=== PATIENT | male | born 1955 | race Caucasian/White ===

== ENCOUNTER 2016-07-08 22:25 | Inpatient (IN) | payer BC ==
[~2016-07-08 22:25] MED LIST: SODIUM CHLORIDE 0.9% 500 ML IV ONE
[2016-07-08] MEDS ORDERED: NITROGLYCERIN SL TABS 0.4 MG TAB SUBLINGUAL PRN (22:29)
[2016-07-08] MEDS ORDERED: ASPIRIN 81 MG CHEW PO STA (22:29)
[2016-07-08] MEDS ORDERED: MORPHINE SULFATE 4 MG/ML SYRINGE IV PRN (22:29)
[2016-07-08] MEDS ORDERED: HEPARIN SODIUM,PORCINE 5,000 UNIT/ML 1 ML VIAL IV PRN (22:29)
[2016-07-08] MEDS ORDERED: HEPARIN SODIUM,PORCINE/D5W PMX 25,000 UNIT in DEXTROSE/WATER 1 500ML.BAG IV SCH (22:30)
--- NOTE | 2016-07-08 22:33 | ED ---
General Adult HPI - General Stated complaint: STEMI Time Seen by Provider: 07/08/16 22:28 Source: RN notes reviewed, old records reviewed - History of Present Illness Initial comments: This is a 61-year-old male the ER for reevaluation chest pain. Patient has history of high blood pressure cholesterol an ex-smoker coming in with severe chest pain. Patient presented to others addition aside from [place] chest pain earlier today was diagnosed and transferred to this hospital for cardiac intervention. Patient remains a chest pain at this time. Mild shortness of breath. At this time is not diaphoretic without cough or congestion and no travel history. Review of Systems ROS Statement: Those systems with pertinent positive or pertinent negative responses have been documented in the HPI. ROS Other: All systems not noted in ROS Statement are negative. General Exam General appearance: alert, in no apparent distress, anxious Head exam: Present: atraumatic, normocephalic, normal inspection Eye exam: Present: normal appearance, PERRL, EOMI. Absent: scleral icterus, conjunctival injection, periorbital swelling ENT exam: Present: normal exam, mucous membranes moist Neck exam: Present: normal inspection. Absent: tenderness, meningismus, lymphadenopathy Respiratory exam: Present: normal lung sounds bilaterally. Absent: respiratory distress, wheezes, rales, rhonchi, stridor Cardiovascular Exam: Present: regular rate, normal rhythm, normal heart sounds. Absent: systolic murmur, diastolic murmur, rubs, gallop, clicks GI/Abdominal exam: Present: soft, normal bowel sounds. Absent: distended, tenderness, guarding, rebound, rigid Extremities exam: Present: normal inspection, full ROM, normal capillary refill. Absent: tenderness, pedal edema, joint swelling, calf tenderness Back exam: Present: normal inspection Neurological exam: Present: alert, oriented X3, CN II-XII intact Psychiatric exam: Present: normal affect, normal mood Skin exam: Present: warm, dry, intact, normal color. Absent: rash Course - Reevaluation(s) Reevaluation #1: 07/08/16 22:31 Patient's at this time remains with mild chest pain. Spoke with patient regarding symptoms of diagnosis, patient is aware questions are answered Reevaluation #2: 07/08/16 22:31 Spoke with transferring physician from [facility] regarding EKG EKG Findings - EKG Comments: EKG Findings:: EKG shows normal sinus rhythm rate of 90, HI 186, QRS 96, QTC 462 , patient does have ST elevated MT Medical Decision Making - Medical Decision Making 6 will not ER as a transfer patient for positive is elevated MT, patient was given heparin and aspirin third on heparin drip, patient admitted to laborer/key man for cardiac intervention. - Radiology Data Radiology results: report reviewed (Chest x-ray portable is negative for acute disease), image reviewed Critical Care Time Critical Care Time: Yes Total Critical Care Time: 31 Disposition Clinical Impression: STEMI (ST elevation myocardial infarction) Disposition: ADMITTED IP TO THIS HOSP Condition: Serious Referrals: None,Stated [Primary Care Provider] - 1-2 days
[2016-07-08] MEDS: ATORVASTATIN 80 MG TAB PO SCH (22:34)
[2016-07-08] MEDS ORDERED: ATORVASTATIN 80 MG TAB PO STA (22:45)
[2016-07-08] MEDS ORDERED: MIDAZOLAM 2 MG/2 ML VIAL ONE (22:48)
[2016-07-08] MEDS ORDERED: fentaNYL (PF) 50 MCG/ML 2 ML AMP ONE (22:48)
[2016-07-08] MEDS ORDERED: MIDAZOLAM 2 MG/2 ML VIAL IVP ONE (22:50)
[2016-07-08] MEDS ORDERED: SODIUM CHLORIDE 0.9% 500 ML IV ONE (22:50)
[2016-07-08] MEDS ORDERED: fentaNYL (PF) 50 MCG/ML 2 ML AMP IV ONE (22:50)
[2016-07-08] MEDS ORDERED: LIDOCAINE 2% INJ 20 MG/ML SQ ONE (22:52)
--- NOTE | 2016-07-08 22:52 | XR ---
EXAMINATION TYPE: XR chest 1V portable DATE OF EXAM: 07/08/2016 10:37 PM COMPARISON: 02/19/2009 HISTORY: Chest pain TECHNIQUE: Single frontal view of the chest is obtained. FINDINGS: There is no heart failure nor confluent pneumonic infiltrate. There are no hilar masses. C ostophrenic angles are clear. There are chest leads. IMPRESSION: Normal chest. No change.
[2016-07-08] MEDS ORDERED: PRASUGREL 10 MG TAB ONE (22:54)
[2016-07-08] MEDS ORDERED: PRASUGREL 10 MG TAB PO ONE (22:55)
[2016-07-08] MEDS ORDERED: NITROGLYCERIN SL TABS 0.4 MG TAB SUBLINGUAL ONE (22:55)
[2016-07-08] MEDS ORDERED: BIVALIRUDIN BOLUS 250 MG/50 ML IV ONE (23:00)
[2016-07-08] MEDS ORDERED: BIVALIRUDIN 250 MG in SODIUM CHLORIDE 0.9% 50 ML IV ONE ×2 (23:00→23:43)
[2016-07-08] MEDS ORDERED: POTASSIUM CHLORIDE 20 MEQ, LIDOCAINE 2% INJ 20 MG in SODIUM CHLORIDE 0.9% 100 ML IVPB ONE (23:18)
[2016-07-08] MEDS: NITROGLYCERIN 1000MCG/10ML SYRINGE INTRACORON ONE ×2 (23:35→23:45)
[2016-07-08] MEDS ORDERED: IODIXANOL 320 MG/ML 100 ML INTRAARTER ONE (23:59)
[2016-07-09] MEDS ORDERED: ZOLPIDEM 5 MG TAB PO PRN (00:08)
[2016-07-09] MEDS ORDERED: ATROPINE SULFATE 0.1 MG/ML 10ML SYRINGE IV PRN (00:08)
[2016-07-09] MEDS ORDERED: RX INFO: IV CONTRAST WAS GIVEN 1 EACH MISC MISCELLANE PRN (00:08)
[2016-07-09] MEDS ORDERED: MAG HYDROX/AL HYDROX/SIMETH 30 ML CUP PO PRN (00:08)
[2016-07-09] MEDS ORDERED: NITROGLYCERIN SL TABS 0.4 MG TAB SUBLINGUAL PRN (00:08)
[2016-07-09 00:25] LABS: Glucose,Whole Blood 152 mg/dL (75-99)
[2016-07-09] MEDS: SODIUM CHLORIDE 0.9% 1,000 ML IV SCH ×3 (00:30→21:42)
[2016-07-09 00:42] VITALS: BMI 34.4
[2016-07-09 01:57] LABS: Creatine Kinase MB 56.6 ng/mL (0.0-2.4)
[2016-07-09 01:58] LABS: Troponin I 15.8 ng/mL (0.000-0.034)
[2016-07-09 06:55] LABS: Basophils % (A) 0 %; CH 29.9; CHCM 33.3; Eosinophils # (A) 0.3 k/uL (0-0.7); Eosinophils % (A) 4 %; HCT 39.5 % (39.0-53.0); HGB 13.2 gm/dL (13.0-17.5); Luc # (Auto) 0.19; Luc % (Auto) 2; Lymphocytes # (A) 1.4 k/uL (1.0-4.8); Lymphocytes % (A) 16 %; MCH 30.2 pg (25.0-35.0); MCHC 33.5 g/dL (31.0-37.0); Mean Platelet Volume 6.6; Monocytes # (A) 0.5 k/uL (0-1.0); Monocytes % (A) 6 %; Neutrophils # (A) 6.6 k/uL (1.3-7.7); Neutrophils % (A) 73 %; RBC 4.39 m/uL (4.30-5.90); RDW 13.8 % (11.5-15.5); WBC (Perox) 8.85
[2016-07-09 07:22] LABS: ALT 57 U/L (21-72); AST 265 U/L (17-59); Alkaline Phosphatase 64 U/L (38-126); Anion Gap 7 mmol/L; Blood Urea Nitrogen 20 mg/dL (9-20); Calcium 8.4 mg/dL (8.4-10.2); Carbon Dioxide 23 mmol/L (22-30); Chloride 110 mmol/L (98-107); Cholesterol 218 mg/dL (<200); Glucose 106 mg/dL (74-99); HDL Cholesterol 36 mg/dL (40-60); Non-African American GFR(MDRD) >60 (>60 ml/min/1.73 sqM); Potassium 4.3 mmol/L (3.5-5.1); Sodium 140 mmol/L (137-145); Total Bilirubin 0.8 mg/dL (0.2-1.3); Total Protein 6.7 g/dL (6.3-8.2); Triglycerides 150 mg/dL (<150)
[2016-07-09 08:14] LABS: Troponin I 59.7 ng/mL (0.000-0.034)
--- NOTE | 2016-07-09 08:28 | CONS ---
DATE OF CONSULTATION: Mr. Esteves is a 61-year-old gentleman who was transferred from [facility] because of the acute myocardial infarction. Patient presented to the [facility] Emergency Room with the complaint of chest pain. The pain started about 3 hours prior to coming into the emergency room. It was a heavy discomfort radiating to the neck and shortness of breath. Patient was diaphoretic. EKG was suggestive of acute inferior wall myocardial infarction. This patient has a known history of peripheral vascular disease and had some surgery in the right leg. Patient is a former smoker and has a history of hypertension. The patient does not take any medications. According to him, he has been having intermittent chest pains on and off for many years. There is no definite previous history of myocardial infarction. Past medical history includes the history of cholecystectomy and a history of surgery for peripheral vascular disease in the right arm. SOCIAL HISTORY: Patient is a former smoker. MEDICATIONS: None. Physical examination in [facility] Emergency Room revealed the patient's blood pressure was 180/90 mmHg. HEAD/ENT examination is negative. Neck was supple. There was no increase in jugular venous pressure. Both the carotid pulses were felt. There was no bruit. Chest is symmetrical. HEART: The PMI is not felt. First and second heart sounds are normal. No significant murmurs were noted. Lungs are clinically clear to auscultation and percussion. Abdomen was negative. EXTREMITIES: Both femoral pulses were 2+. There is a scar present in the mid thigh. Distal pulses were 1+. EKG was suggestive of acute inferior wall myocardial infarction. FINAL IMPRESSION: 1. This patient has presented with acute inferior wall myocardial infarction. 2. Patient has a known history of peripheral vascular disease and mild coronary artery disease in the past. RECOMMENDATIONS: We will proceed with a cardiac catheterization for definite diagnosis and primary angioplasty.
--- NOTE | 2016-07-09 08:32 | CC ---
DATE OF SERVICE: PROCEDURE: The right groin was prepped and draped in the usual manner and the skin was infiltrated with 2% Xylocaine. The right femoral artery was entered using Seldinger technique. A #6 Bel[place]an sheath was placed in. Selective coronary angiography was then performed in multiple projections. Patient tolerated the procedure well. SELECTIVE CORONARY ANGIOGRAPHY: Left main coronary artery is normal and patent. LAD is a good caliber blood vessel. There is a mild irregularity noted in the mid LAD. Circumflex coronary artery is a good caliber blood vessel and the first obtuse marginal branch is subtotally occluded with POONAM 2 flow noted in the obtuse marginal branch and the PLV branch. Right coronary artery is totally occluded. There is some filling of distal right coronary artery from left coronary system. FINAL IMPRESSION: 1. There is subtotal occlusion of the circumflex coronary artery which appears to be culprit vessel. 2. Left anterior descending has mild disease. 3. Right coronary artery is chronically totally occluded. RECOMMENDATIONS: Will review the films with Dr. Perry Mancia and we will proceed with stent to the obtuse marginal branch.
--- NOTE | 2016-07-09 08:45 | PTCA ---
DATE OF SERVICE: 07/08/2016 PROCEDURE: PTCA and stenting of totally occluded circumflex coronary artery performed in the setting of an acute ST elevation myocardial infarction. PERFORMED BY: Dr. Perry Mancia. CLINICAL INFORMATION: Mr. 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 He is known to have peripheral arterial disease. In 2008, he had a bypass surgery, involving the right lower extremity. The details of which are not available. Coronary angiography at that time revealed that he had a right dominant system and had minor irregularities. No significant obstructive CAD. He presented with chest pain and inferior ST elevation. He was evaluated by Dr. Benton Cuellar who performed coronary angiography that revealed that the right coronary artery was totally occluded and probably chronically occluded. LAD had a moderate 40 to 45% mid lesion. Circumflex was totally occluded in the proximal portion with some staining suggestive of a total occlusion, which was an acute occlusion. He was advised intervention that was performed expeditiously. PROCEDURE NOTE: The existing 6 Chinese introducer in the right femoral artery was used to perform the procedure. I used an XB 3.5 curved catheter to cannulate the left coronary artery. I used a BMW wire to cross the lesion, wire was kept in the first obtuse marginal branch, which was located just beyond the total occlusion. I advanced another wire, which was also a BMW wire into the main circumflex all the way distally into the branches. There was a larger second obtuse marginal that was patent with good flow. Once I advanced the wire, the vessel opened up. There was relief of chest pain. I predilated the site of total occlusion with a 3.0 caliber, 12 mm long NC Euphora balloon. I then used a 2.5 caliber, 12 mm balloon to dilate the first obtuse marginal which had a lot of thrombus in it. This balloon was advanced in a deflated condition all the way down. Subsequently patient had chest pain and inferior ST elevation with these inflations. I left both wires in place and after some deliberation, I advanced a 2.25 caliber, 12 mm long Xience stent into the first obtuse marginal. The proximal end was right at the ostium. A decent angiographic result was achieved. I then deployed a 3.25 caliber, 12 mm long Xience stent in the proximal circumflex and the distal aspect of the stent was just above the first obtuse marginal branch. Excellent angiographic result was achieved, but I noted that just before the larger second obtuse marginal and there was an eccentric 80% lesion. This was addressed with a 2.5 caliber, 8 mm long Xience stent that was deployed at 13 atmospheres. Patient had chest pain and inferior ST elevation with inflations. After deploying three stents, he had an excellent angiographic result. He had total relief of chest pain. There was improvement in ST segment elevation, but not normalization. He remained hemodynamically stable. The sheath was sutured and he was sent to the room in stable condition. He received Angiomax bolus and infusion. He also received 60 mg of Effient. The results and angiograms were reviewed with the patient and his . Excellent angiographic result without complication was noted. His right coronary artery seemed to fill from collaterals coming from the left system. Conscious sedation was provided for 50 minutes and patient was monitored closely. ASSESSMENT: From a pre- PTCA stenosis of about 100% with sluggish flow in the circumflex, after stenting the residual stenosis was 0%, with remarkably good angiographic appearance and flow without evident complication. I am advising a pulmonary evaluation for this patient in view of his past history of smoking and some wheezing. He has quit smoking in 2009 or so. He will also have an echocardiogram in the morning. SANDRA
[2016-07-09] MEDS: ASPIRIN 81 MG CHEW PO SCH (08:49)
[2016-07-09] MEDS ORDERED: LISINOPRIL 10 MG TAB PO SCH ×2 (09:00→21:00)
[2016-07-09] MEDS ORDERED: METOPROLOL TARTRATE 12.5 MG TAB PO SCH (09:00)
[2016-07-09] MEDS ORDERED: ASPIRIN 325 MG TAB PO SCH (09:00)
[2016-07-09] MEDS: ATROPINE SULFATE 0.1 MG/ML 10ML SYRINGE ONE ×2 (12:33→12:35)
[2016-07-09] MEDS ORDERED: SODIUM CHLORIDE 0.9% 1,000 ML IV ONE (12:34)
--- NOTE | 2016-07-09 14:47 | ECHOF ---
Referral Reason:Inf [place] S/P PCI MEASUREMENTS -------- HEIGHT: 180.3 cm WEIGHT: 113.4 kg BP: 167/87 IVSd: 1.5 cm (0.6 - 1.1) LVIDd: 4.6 cm (3.9 - 5.3) LVPWd: 1.4 cm (0.6 - 1.1) IVSs: 2.1 cm LVIDs: 2.7 cm LVPWs: 1.9 cm Ao Diam: 3.1 cm (2.0 - 3.7) AV Cusp: 2.0 cm (1.5 - 2.6) LA Diam: 3.0 cm (2.7 - 3.8) MV EXCURSION: 9.718 mm (> 18.000) MV EF SLOPE: 53 mm/s (70 - 150) EPSS: 1.2 cm MV E Eyad: 0.87 m/s MV DecT: 288 ms MV A Eyad: 1.03 m/s MV E/A Ratio: 0.85 RAP: 5.00 mmHg RVSP: 8.86 mmHg FINDINGS -------- Sinus rhythm. This was a technically good study. There is moderate concentric left ventricular hypertrophy. Overall left ventricular systolic function is mild-moderately impaired with, an EF between 40 - 45 %. Basal inferior LV wall motion is akinetic. Mid inferior LV wall motion is akinetic. Inferiorlateral Hypokinesis The right ventricle is normal in size and function. The left atrium is normal in size. The right atrium is normal in size. The aortic valve is trileaflet, and appears structurally normal. No aortic stenosis or regurgitation. The mitral valve leaflets are mildly thickened. Mild mitral regurgitation is present. Mild tricuspid regurgitation present. The right ventricular systolic pressure, as measured by Doppler, is 8.86mmHg. Pulmonic valve appears structurally normal. The aortic root size is normal. The pericardium is normal. CONCLUSIONS -------- 1. Sinus rhythm. 2. The mitral valve leaflets are mildly thickened. 3. Mild mitral regurgitation is present. 4. Mild tricuspid regurgitation present. 5. The right ventricular systolic pressure, as measured by Doppler, is 8.86mmHg. 6. Pulmonic valve appears structurally normal. 7. The aortic root size is normal. 8. The pericardium is normal. 9. This was a technically good study. 10. There is moderate concentric left ventricular hypertrophy. 11. Overall left ventricular systolic function is mild-moderately impaired with, an EF between 40 - 45 %. 12. Inferiorlateral Hypokinesis 13. The right ventricle is normal in size and function. 14. The left atrium is normal in size. 15. The right atrium is normal in size. 16. The aortic valve is trileaflet, and appears structurally normal. No aortic stenosis or regurgitation. BUS REPAIR SUPERVISOR: Marizol Reyes RDCS
--- NOTE | 2016-07-09 15:05 | PN ---
Mr. Esteves was seen by me last night when he presented with acute inferior HI. I performed stenting of a very complex circumflex lesion. He had an excellent angiographic result. He is doing well this morning. Right groin is clean and dry. Blood pressure is slightly elevated, otherwise, he is feeling better. He still has some rales and some rhonchi. He does have past history of smoking. Blood pressure 160/70, pulse rate is 60 per minute. JVD is not evident. S1, S2 heard normally. Lungs reveal scattered rhonchi. Abdomen and lower extremity exam unchanged. Right groin is clean and dry. Plan is to increase lisinopril. Continue all his medications. Increase activity. Move him to telemetry today.
--- NOTE | 2016-07-09 18:12 | CONS ---
DATE OF CONSULTATION: Zachary Esteves is a 61-year-old male who presented to the ED at [facility] with chest pain. It lasted for a few hours and has been associated with shortness of breath. He did have shortness of breath for the past few months as well on exertion. No clear wheezing. He has an occasional cough. He was found to have an acute myocardial infarction and underwent primary coronary angioplasty with good result. He has a known history of smoking and quit smoking in 2009. Patient is sitting in a chair and is comfortable at this time. He complains of shortness of breath on exertion, but does not seem to be in any respiratory distress. His past medical history is negative for coronary artery disease. He may have had inhaler in the past, but it is not clear whether this is due to chronic obstructive pulmonary disease or something acute at this time. Past medical history is positive for peripheral vascular surgery in his right arm as well as a cholecystectomy. FAMILY HISTORY: Positive for rheumatoid arthritis in his brother and cancer runs in the family. SOCIAL HISTORY: The patient used to smoke a pack of cigarettes per day. He quit smoking in 2009. 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 Medications prior to admission were ibuprofen and aspirin. REVIEW OF SYSTEMS: Positive for obesity. On physical examination, respiratory rate is 14, pulse rate of 60, temperature 98.1, blood pressure 101/66, O2 sat on room air is 96%. HEENT reveals pupils are equal. Chest reveals decreased breath sounds. No wheeze or crackles. Cardiovascular system reveals an S1 and S2. ABDOMEN: Soft. There is no pedal edema. Labs reveal a white count of 9, hemoglobin 13.2. Sodium 140, potassium 4.3, chloride 110, bicarb 23, BUN 20, creatinine of 1.02, CPK is 2174 with an MB of 122. Troponin is 59.7, triglycerides 150, cholesterol 218. Chest x-ray is normal. EKG shows ST depression in one with ST elevation in 2, 3 and aVF consistent with an acute inferolateral myocardial infarction. Cardiac catheterization showed subtotal occlusion of the circumflex with right coronary artery totally occluded. PTCA was done of the circumflex with a residual stenosis of 0%. At this point in time, from a pulmonary standpoint, would recommend an outpatient work-up for possible chronic obstructive pulmonary disease, may benefit from a sleep study for obstructive sleep apnea. As well as this may be contributing to his history of coronary artery disease. He was counseled regarding his condition and this approach. We will follow him closely. From a respiratory standpoint, at this time, he seems fairly stable.
[2016-07-09] MEDS: PRASUGREL 10 MG TAB PO SCH (21:42)
[2016-07-10 04:57] LABS: Basophils % (A) 0 %; CH 29.9; CHCM 32.2; Eosinophils # (A) 0.4 k/uL (0-0.7); Eosinophils % (A) 4 %; HCT 41.4 % (39.0-53.0); HDW 2.55; Luc % (Auto) 2; Lymphocytes # (A) 1.8 k/uL (1.0-4.8); Lymphocytes % (A) 18 %; MCH 29.3 pg (25.0-35.0); MCHC 31.5 g/dL (31.0-37.0); MCV 93.2 fL (80.0-100.0); Mean Platelet Volume 6.7; Monocytes # (A) 0.5 k/uL (0-1.0); Monocytes % (A) 5 %; Neutrophils # (A) 6.9 k/uL (1.3-7.7); Neutrophils % (A) 71 %; RBC 4.45 m/uL (4.30-5.90); RDW 13.9 % (11.5-15.5); WBC 9.8 k/uL (3.8-10.6); WBC (Perox) 10.47
[2016-07-10 05:03] LABS: Anion Gap 6 mmol/L; Blood Urea Nitrogen 16 mg/dL (9-20); Calcium 8.7 mg/dL (8.4-10.2); Carbon Dioxide 24 mmol/L (22-30); Chloride 109 mmol/L (98-107); Glucose 107 mg/dL (74-99); Non-African American GFR(MDRD) >60 (>60 ml/min/1.73 sqM); Potassium 4.6 mmol/L (3.5-5.1); Sodium 139 mmol/L (137-145)
[2016-07-10] MEDS: SODIUM CHLORIDE 0.9% 1,000 ML IV SCH ×3 (06:18→15:58)
--- NOTE | 2016-07-10 07:13 | HP ---
DATE OF ADMISSION: 07/08/2016 DATE OF SERVICE: 07/09/2016 CHIEF COMPLAINT: Chest pain. HISTORY OF PRESENT ILLNESS: Mr. Esteves is a 61-year-old male with past medical history of hyperlipidemia and hypertension coming into the hospital with a chief complaint of chest pain. The patient has long-standing history of hypertension and hyperlipidemia and he is an ex-smoker who is noncompliant with his medications, who came in with a chief complaint of chest pain. The patient had the chest pain for almost 3 hours before coming into the ER. It was substernal in nature, radiating to the neck and he was slightly short of breath, but there was no loss of consciousness, no diaphoresis. Patient has long-standing hypertension and hyperlipidemia, but does not take any home medication. Patient had an EKG done in the ER suggestive of acute inferior wall myocardial infarction. So he was taken to cardiac cath and had 3 stents placed. Currently, the patient is in the ICU, status post procedure and he denies having any complaints of chest pain or difficulty in breathing. REVIEW OF SYSTEMS: All 13 review of systems are done and negative except as mentioned above. PAST MEDICAL HISTORY: Hypertension, hyperlipidemia, noncompliance with medications. ALLERGIES: No known drug allergies. HOME MEDICATIONS: None. FAMILY: Positive for hypertension. SOCIAL HISTORY: The patient is an ex-smoker, occasional alcohol. No history of drug abuse. Patient's vitals: Currently, blood pressure 130/52, heart rate of 62, respiratory rate 12, saturating at 99% on room air. Temperature is 98. On examination, the patient appears to be in no acute distress. HEAD: Atraumatic, nontraumatic. Pupils round, and reactive to light. NECK: No JVD, thyromegaly LUNGS: Clear to auscultation ABDOMEN: Soft, nontender. No organomegaly. Bowel sounds are positive. EXTREMITIES: No edema, no cyanosis, no clubbing. Positive pulses. SENIOR ORACLE DBA: Alert and oriented x3. No focal neurological deficits. SKIN: No rash. MUSCULOSKELETAL: No joint swelling or deformity. PSYCHIATRIC: Appropriate mood and affect. Patient's labs: White count of 9, hemoglobin 13.2, platelets 267. Sodium 145, potassium 4.2, chloride 110. Bicarb 23, BUN 23, creatinine 1.02. LDL 152. Troponin 15.8. ASSESSMENT AND PLAN: 1. ST elevation myocardial infarction. 2. Hypertension. 3. Hyperlipidemia. 4. Symptomatic Bradycardia 5. Obesity with body mass index of 33.9. PLAN: The patient had stenting of 3 vessels done. Patient has been started on aspirin, statin, RODNEY inhibitors and beta blockers. Earlier this morning, patient had an episode of bradycardia and hypotension and he required a dose of atropine and 2 liters of IV fluids to get his blood pressure and heart rate up. So eventually his beta blockers and RODNEY inhibitors have been discontinued due to this acute episode. He is currently being monitored in the ICU setting. To continue with the current medication regimen and further recommendations to follow depending on the progress of the patient. MTDD
[2016-07-10] MEDS: ASPIRIN 81 MG CHEW PO SCH (09:20)
[2016-07-10] MEDS: CARVEDILOL 3.125 MG TAB PO SCH ×2 (09:20→17:01)
[2016-07-10 14:21] LABS: Hemoglobin A1C 5.8 % (4.2-6.1)
--- NOTE | 2016-07-10 14:32 | PN ---
Mr. Esteves presented with an acute inferior NJ, underwent stenting of complex circumflex vessel. Yesterday he had an episode of vasovagal phenomenon after I saw him in the morning and this occurred after he received 20 mg of Lisinopril and another 12.5 of Lopressor. He was also somewhat volume depleted, became vasovagal, requiring IV fluids and 1.5 mg of atropine. However, this morning he is asymptomatic. His troponin profile suggests a downward trend. He is comfortable, resting. EKG shows no acute changes. There is evidence of old NJ. Blood pressure 170/60, pulse rate is 64 per minute. No JVD. S1, S2 heard normally. Lungs are clear. Abdomen and lower extremities unremarkable. We will continue the hydration, increase activity. Start him on a small dose of Coreg and also a small dose of losartan and move him out of telemetry this afternoon. We will cut the fluids down to 75 mL this afternoon. I discussed my thoughts in detail with the patient. Thank you very much for the consult.
[2016-07-10] MEDS: PRASUGREL 10 MG TAB PO SCH (20:43)
[2016-07-10] MEDS ORDERED: LOSARTAN 25 MG TAB PO SCH (21:00)
[2016-07-11 06:23] LABS: Mean Platelet Volume 6.7
[2016-07-11] MEDS: SODIUM CHLORIDE 0.9% 1,000 ML IV SCH ×2 (06:48→07:24)
[2016-07-11] MEDS: CARVEDILOL 3.125 MG TAB PO SCH (06:57)
[2016-07-11] MEDS: ASPIRIN 81 MG CHEW PO SCH (07:30)
[2016-07-11] MEDS: ATORVASTATIN 80 MG TAB PO SCH (07:30)
[2016-07-11 07:50] VITALS: TEMP 97.2
--- NOTE | 2016-07-11 10:59 | PN ---
He does not complain of any chest pain or shortness of breath. On physical examination, his blood pressure is 140/74, respiratory rate of 18, pulse rate of 68, temperature 98.1, O2 sat on room air is 97%. HEENT reveals pupils that are equal. Chest is clear. Cardiovascular system reveals an S1 and S2. Abdomen is soft. There is no edema. Labs are reviewed. White count is 9.8, hemoglobin of 13. Sodium 139, potassium 4.6, chloride 106, bicarb 24, troponin yesterday afternoon had been 37.2. IMPRESSION: 1. Acute myocardial infarction, status post angioplasty. 2. Possible chronic obstructive pulmonary disease with previous nicotine dependence. 3. Obstructive sleep apnea is likely as the patient does have risk factors and has been noted to snore per his . At this point in time, from a pulmonary standpoint, would recommend an outpatient followup and work-up with PFT and possible sleep study, hold off on any bronchodilators at this time because of the possibly of cardiac side effects. Depending on how he does, we shall make further changes to his care. He was counseled regarding his condition.
--- NOTE | 2016-07-11 11:13 | P.PN ---
Subjective Principal diagnosis: STEMI Patient seen and examined. Patient states he is feeling really good and is hoping to go home today. He denies SOB, CP, cough, fever, chills. He states he has been up walking the halls today without difficulty. He quit smoking 10 years ago. Objective - Vital Signs Vital signs: Vital Signs Temp 97.2 F L 07/11/16 07:49 Pulse 60 07/11/16 07:49 Resp 16 07/11/16 07:49 BP 143/76 07/11/16 07:49 Pulse Ox 98 07/11/16 07:49 Intake & Output 07/10/16 07/11/16 07/11/16 18:59 06:59 18:59 Intake Total 490 800 240 Output Total 950 300 Balance -460 500 240 Weight 111.4 kg Intake: IV 250 Sodium Chloride 0.9% 1, 250 000 ml @ 75 mls/hr IV . [id number] FABIO Rx#:[id number] Intake, IV Titration 0 Amount Sodium Chloride 0.9% 1, 0 000 ml @ 125 mls/hr IV . Q8H FABIO Rx#:[id number] Oral 240 800 240 Output: Urine 950 300 Other: # Voids 1 # Bowel Movements 0 - Exam Gen: A+OX3, NAD CV: RRR, s1/s2 Lungs: Diminished otherwise clear Abd: soft, NT/NT, +BS Ext: no edema - Labs CBC & Chem 7: 07/11/16 05:43 07/10/16 04:28 Assessment and Plan Plan: STEMI, s/p PCI Possible underlying COPD Hx tobacco abuse Obesity, question GINNY Vasovagal syncope Hypertension Dyslipidemia Systolic CHF, EF 40-45%, not acutely exacerbated Maintain sat > or = to 88% Cardiology recommendations Continue smoking cessation is highly recommended Outpatient pulmonary follow-up for PFT and PSG No need for bronchodilators at this time Incentive spirometry and pulmonary hygiene GI and DVT prophylaxis Respiratory status is stable
[2016-07-11 12:23] VITALS: RESP 18
[2016-07-11 13:02] VITALS: BP 147/93; PULSE 67
--- NOTE | 2016-07-11 14:42 | P.PN ---
Subjective Principal diagnosis: Acute Inferior Wall Mi This is a 61-year-old gentleman who presented to the hospital with an acute inferior wall NJ. He underwent angioplasty and stenting of the circumflex. Following that patient had an episode of vasovagal requiring atropine and IV fluids. He was seen and examined this morning, denies any chest pain or difficulty in breathing. He has been up ambulating in his room but not much in the hallway at this morning. Blood pressure 166/80 heart rate in the 60s. Echocardiogram with Doppler study was performed an ejection fraction of 40-45%. CBC normal. Potassium 4.6, BUN 16, creatinine 1.1. Objective - Vital Signs Vital signs: Vital Signs Temp 97.2 F L 07/11/16 12:00 Pulse 67 07/11/16 13:00 Resp 18 07/11/16 12:00 BP 147/93 07/11/16 13:00 Pulse Ox 96 07/11/16 13:00 Intake & Output 07/10/16 07/11/16 07/11/16 18:59 06:59 18:59 Intake Total 490 800 240 Output Total 950 300 Balance -460 500 240 Weight 111.4 kg Intake: IV 250 Sodium Chloride 0.9% 1, 250 000 ml @ 75 mls/hr IV . [id number] FABIO Rx#:[id number] Intake, IV Titration 0 Amount Sodium Chloride 0.9% 1, 0 000 ml @ 125 mls/hr IV . Q8H FABIO Rx#:[id number] Oral 240 800 240 Output: Urine 950 300 Other: # Voids 1 # Bowel Movements 0 - Exam PHYSICAL EXAMINATION: HEENT: Head is atraumatic, normocephalic. Pupils equal, round. Neck is supple. There is no elevated jugular venous pressure. HEART EXAMINATION: Heart S1, S2 normal. No murmur or gallop heard. CHEST EXAMINATION: Lungs are clear to auscultation and precussion. No chest wall tenderness is noted on palpation or with deep breathing. ABDOMEN: Soft, nontender. Bowel sounds are heard. No organomegaly noted. EXTREMITIES: 2+ peripheral pulses with no evidence of peripheral edema and no calf tenderness noted. NEUROLOGIC patient is awake, alert and oriented -3. . - Labs CBC & Chem 7: 07/11/16 05:43 07/10/16 04:28 Assessment and Plan (1) Presence of stent in left circumflex coronary artery Status: Acute (2) HTN (hypertension) Status: Acute (3) Hyperlipemia Status: Acute (4) PVD (peripheral vascular disease) Status: Acute (5) STEMI (ST elevation myocardial infarction) Status: Acute Plan: From cardiology's perspective, patient may be able to be discharged home today. He will be discharged home on aspirin 81 mg daily, Lipitor 80 mg daily, Coreg 3.125 mg by mouth twice a day, losartan 50 mg daily, Effient 10 mg daily, and sublingual nitroglycerin as needed for chest pain. Patient has been educated regarding his medication, advised regarding his follow-up appointment and limitation of work. Prescriptions have been provided for his medications. DNP note has been reviewed, I agree with a documented findings and plan of care. Patient was seen and examined.
--- NOTE | 2016-07-11 15:23 | PN ---
DATE OF SERVICE: 07/10/2016 INTERVAL HISTORY: Mr. Esteves is a 61-year-old male with a past medical history of hypertension, hyperlipidemia who has been noncompliant with his medication, admitted to the hospital with a chief complaint of chest pain. The patient had ST-elevation [place] and was taken to the Process Engineering Intern and had 3 stents placed. Patient has been sent from the ICU to the floor this afternoon. Patient is resting comfortably in the bed, states that he took a walk in the hallways and has no complaints. REVIEW OF SYSTEMS: CONSTITUTIONAL: Denies having any fevers, chills or rigors. RESPIRATORY: No cough. No difficulty in breathing. CARDIAC: No chest pain, no palpitations. GI: No abdominal pain, nausea, vomiting or diarrhea. : No dysuria or hematuria. The patient medications have been reviewed. On examination, patient's vital signs, temperature 98.1, heart rate 66, respiratory rate 18, blood pressure 153/87, saturating at 99% on room air. GENERAL EXAMINATION: Patient appears to be in no acute distress. HEAD: Atraumatic, normocephalic. EYES: Pupils round and reactive to light. NECK: No JVD. No thyromegaly. CARDIOVASCULAR: S1, S2 heard. RESPIRATORY: Bilateral breath sounds are positive. No wheeze or crackles. ABDOMEN: Soft, nontender, no organomegaly. Bowel sounds positive. EXTREMITIES: No edema. No cyanosis, no clubbing. Positive for bilateral pulses. EMBROIDERY FINISHER: Alert, awake, oriented x3. No focal neurological deficits. MUSCULOSKELETAL: No joint swelling or deformity. PSYCHIATRIC: Appropriate mood and affect. SKIN: No rash. Patient's labs: White count of 9.8, hemoglobin 13, platelets 226, sodium 139, potassium 4.6, chloride 109, bicarb 24, BUN 16, creatinine 1.10. ASSESSMENT AND PLAN: 1. Acute myocardial infarction [id number] myocardial infarction. 2. Hypertension. 3. Hyperlipidemia. 4. Former smoker. 5. Obesity with body mass index of 33.9. 6. Hypotension and bradycardia after initiation of beta blockers. PLAN: The plan is to continue the patient on the current medication regimen. He was started on a tiny dose of Coreg and 25 mg of losartan today. Will follow the patient's vitals closely. Further recommendations to follow depending on the progress of the patient.
[2016-07-12] MEDS ORDERED: PANTOPRAZOLE 40 MG TABLET PO SCH (07:30)
[2016-07-12] MEDS ORDERED: LOSARTAN 50 MG TAB PO SCH (09:00)
--- NOTE | 2016-07-12 13:23 | DS ---
DATE OF ADMISSION: 07/08/2016 DATE OF DISCHARGE: 07/11/2016 DATE OF SERVICE: 07/11/2016 HOSPITAL COURSE: Mr. Esteves is a 61-year-old male with a past medical history of hypertension, hyperlipidemia, noncompliant with his medications, admitted to the hospital with a chief complaint of chest pain. The patient had ST elevation [place] was taken to the collaborating supervising physician and had 3 stents placed. Eventually the patient was in the ICU for 24 hours and later on transferred to the general medical floor. The patient also has chronic history of smoking. He has been diagnosed with hypertension and hyperlipidemia in the past but quit taking medications as he thinks he cannot remember taking his medications every day. Postop, the patient was doing okay, did not have any difficulty in breathing. No chest pain. His labs have been within normal limits. He has been cleared by cardiology to be discharged home today. Procedures done during the hospital visit: Echocardiogram showing an ejection fraction of 40% to 45% with inferolateral wall hypokinesis and cardiac cath with stenting of the left circumflex coronary artery. CONSULT OBTAINED: Cardiology and pulmonary consults. PATIENT'S DISCHARGE DIAGNOSES: 1. Acute myocardial infarction, ST elevation myocardial infarction. 2. Hypertension. 3. Hyperlipidemia. 4. Former smoker. 5. Obesity with BMI of 33.9. 6. Hypotension and bradycardia, that is resolved with the initiation of beta blockers. The patient's discharge medications: 1. Aspirin 81 mg p.o. daily. 2. Motrin 200 to 400 mg p.o. q.6 hours p.r.n. for pain. 3. Lipitor 80 mg p.o. daily. 4. Coreg 3.125 mg p.o. b.i.d. 5. Losartan 50 mg p.o. daily. 6. Nitroglycerin 0.4 mg sublingual q.5 minutes p.r.n. for chest pain. 7. Prasugrel 10 mg p.o. q.h.s. FOLLOWUP: The patient is given a follow-up appointment with Cardiology, Dr. Benton Cuellar on 07/19/2016 at 3:15 and he is being discharged home in stable condition. The patient was explained that he has to be compliant with his medications. He states he understands that. DIET: Cardiac diet. Activity as tolerated. It was discussed in detail if the patient has recurrence of chest pain that he has to seek medical attention. More than 35 minutes spent towards the discharge of the patient.
== END 2016-07-11 16:42 | disposition home or self-care (01) | DRG 247 ==
LOC: EC 22:25 → 6ICU 22:30 → 6SEL 07-10 13:06
PROVIDERS: ADMIT Internal Medicine; ATTEND Internal Medicine
PROC: 027036Z Dilation of Coronary Artery, One Artery with Three Drug-eluting Intraluminal Devices, Percutaneous Approach (ICD-10-PCS; principal; 2016-07-08 22:32)
PROC: B211YZZ Fluoroscopy of Multiple Coronary Arteries using Other Contrast (ICD-10-PCS; 2016-07-08 22:32)
DX: I21.19 ST elevation (STEMI) myocardial infarction involving other coronary artery of inferior wall (principal); I50.22 Chronic systolic (congestive) heart failure; I11.0 Hypertensive heart disease with heart failure; I95.9 Hypotension, unspecified; I25.82 Chronic total occlusion of coronary artery; R00.1 Bradycardia, unspecified; E78.5 Hyperlipidemia, unspecified; E66.9 Obesity, unspecified; Z68.33 Body mass index [BMI] 33.0-33.9, adult; I73.9 Peripheral vascular disease, unspecified; G47.33 Obstructive sleep apnea (adult) (pediatric); E86.9 Volume depletion, unspecified; I25.10 Atherosclerotic heart disease of native coronary artery without angina pectoris; Z87.891 Personal history of nicotine dependence; Z91.14 Patient's other noncompliance with medication regimen; Z90.49 Acquired absence of other specified parts of digestive tract; Z79.82 Long term (current) use of aspirin
CPT/HCPCS: 71010; 80048; 80053; 80061; 82550; 82553; 83036; 84484; 85025; 85049; 85730; 93005; 93306; 93454; 99291

== ENCOUNTER 2016-07-11 23:24 | Emergency (ER) | payer BC ==
[2016-07-11] MEDS ORDERED: RX INFO: IV CONTRAST WAS GIVEN 1 EACH MISC MISCELLANE PRN (23:32)
[2016-07-11] MEDS ORDERED: SODIUM CHLORIDE 0.9% 1,000 ML IV STA (23:32)
--- NOTE | 2016-07-11 23:46 | ED ---
Weakness HPI - General Chief complaint: Weakness Stated complaint: Poss Stroke Time Seen by Provider: 07/11/16 23:30 Source: patient, family, EMS Mode of arrival: EMS Limitations: physical limitation - History of Present Illness Initial comments: This patient is a 61-year-old man brought in by EMS to be evaluated for suspected stroke. The patient had gone to bed tonight around 7 PM, and then his states that she noticed she was coughing and she went to see him and noted that his left face was not looking right and that he was not moving his left side. She phoned EMS and they brought him here to be evaluated. The patient is denying headache or chest pain. He did recently have an acute NC and was taken to the Forestry Supervisor and had a stent placed on July 08. He is currently taking Effient. He was discharged from the hospital today. Complaint: focal weakness -: hour(s) Location: LUE, LLE, face Severity: severe Consistency: constant Improves with: none Worsens with: none Context: new medication, recent surgery Associated Symptoms: denies other symptoms - Related Data Home Medications Medication Instructions Recorded Confirmed Ibuprofen [Motrin] 400 mg PO Q6HR PRN 07/09/16 07/11/16 Previous Rx's Medication Instructions Recorded Aspirin 81 mg PO DAILY #30 chew 07/11/16 Atorvastatin [Lipitor] 80 mg PO DAILY #30 tab 07/11/16 Carvedilol [Coreg] 3.125 mg PO BID-W/MEALS #60 tab 07/11/16 Losartan [Cozaar] 50 mg PO DAILY #30 tab 07/11/16 Nitroglycerin Sl Tabs [Nitrostat] 0.4 mg SUBLINGUAL Q5M PRN #25 tab 07/11/16 Prasugrel [Effient] 10 mg PO HS #30 tab 07/11/16 Allergies Allergy/AdvReac Type Severity Reaction Status Date / Time No Known Allergies Allergy Verified 07/11/16 23:45 Review of Systems ROS Statement: Those systems with pertinent positive or pertinent negative responses have been documented in the HPI. ROS Other: All systems not noted in ROS Statement are negative. Constitutional: Denies: fever, chills Respiratory: Denies: cough, dyspnea Cardiovascular: Denies: chest pain, palpitations, orthopnea, syncope Gastrointestinal: Denies: abdominal pain, vomiting Musculoskeletal: Denies: back pain Neurological: Reports: weakness, numbness Past Medical History Past Medical History: Hypertension, Myocardial Infarction (NC) Additional Past Medical History / Comment(s): PAD History of Any Multi-Drug Resistant Organisms: None Reported Past Surgical History: Heart Catheterization With Stent Additional Past Surgical History / Comment(s): stent placement in 07/2016, bypass to 2007 in right leg. Past Anesthesia/Blood Transfusion Reactions: No Reported Reaction Past Psychological History: No Psychological Hx Reported Smoking Status: Former smoker Past Alcohol Use History: None Reported Past Drug Use History: None Reported General Exam Limitations: physical limitation General appearance: alert Head exam: Present: atraumatic, normocephalic Eye exam: Present: PERRL, other (There is gave deviation to the right). Absent : EOMI ENT exam: Present: other (Left-sided facial droop) Neck exam: Present: normal inspection Respiratory exam: Present: normal lung sounds bilaterally. Absent: respiratory distress, wheezes, rales, rhonchi, stridor Cardiovascular Exam: Present: regular rate, normal rhythm, normal heart sounds. Absent: systolic murmur, diastolic murmur, rubs, gallop GI/Abdominal exam: Present: soft. Absent: distended, tenderness, guarding, rebound, mass Extremities exam: Present: normal capillary refill. Absent: tenderness, pedal edema, calf tenderness Neurological exam: Present: alert, oriented X3, motor sensory deficit, other ( Patient has GCS of 15. The cranial nerve examination reveals a left-sided facial droop. The motor strength exam does reveal weakness of the left upper and left lower extremities. There is a sensory deficit on the left side as well.). Absent: CN II-XII intact Skin exam: Present: warm, dry, intact, normal color. Absent: rash Course Vital Signs 07/11/16 07/11/16 07/12/16 23:26 23:53 00:04 Temperature 99.2 F Pulse Rate 78 80 77 Respiratory 20 18 20 Rate Blood Pressure 207/125 186/110 223/102 O2 Sat by Pulse 99 99 97 Oximetry 07/12/16 00:16 Temperature Pulse Rate 63 Respiratory 18 Rate Blood Pressure 181/84 O2 Sat by Pulse 94 L Oximetry EKG Findings - EKG Results: EKG: interpreted by ERMD, sinus rhythm (Rate 73 bpm), normal axis, normal QRS, normal ST/T - NC, Pacemaker, Normal: Myocardial infarction: inferior NC (old age indeterminate) Medical Decision Making - Medical Decision Making This patient is a 61-year-old man presenting with the acute onset of signs and symptoms consistent with acute stroke. Patient sent for CT on arrival with CTA , and showing right internal carotid obstruction. Stroke intervention team activated, they have evaluated the patient and recommend administration of TPA followed by transfer to have thrombectomy. They did have discussion of indications, risks and benefits of TPA administration with the patient and family over the stroke robot, and he patient and family elected to proceed. Patient then to be transferred to [facility]. - Lab Data Result diagrams: 07/11/16 23:30 07/11/16 23:30 Lab Results 07/11/16 07/11/16 07/11/16 Range/Units 23:30 23:30 23:30 WBC 12.9 H (3.8-10.6) k/uL RBC 4.89 (4.30-5.90) m/uL Hgb 14.4 (13.0-17.5) gm/dL Hct 43.5 (39.0-53.0) % MCV 88.9 (80.0-100.0) fL MCH 29.5 (25.0-35.0) pg MCHC 33.1 (31.0-37.0) g/dL RDW 13.8 (11.5-15.5) % Plt Count 322 (150-450) k/uL Neutrophils % 65 % Lymphocytes % 21 % Monocytes % 6 % Eosinophils % 5 % Basophils % 1 % Neutrophils # 8.4 H (1.3-7.7) k/uL Lymphocytes # 2.7 (1.0-4.8) k/uL Monocytes # 0.8 (0-1.0) k/uL Eosinophils # 0.6 (0-0.7) k/uL Basophils # 0.1 (0-0.2) k/uL PT (9.0-12.0) sec INR (<1.1) APTT (22.0-30.0) sec Sodium 141 (137-145) mmol/L Potassium 4.0 (3.5-5.1) mmol/L Chloride 102 (98-107) mmol/L Carbon Dioxide 28 (22-30) mmol/L Anion Gap 11 mmol/L BUN 21 H (9-20) mg/dL Creatinine 1.23 (0.66-1.25) mg/dL Est GFR (MDRD) Af Amer >60 (>60 ml/min/1.73 sqM) Est GFR (MDRD) Non-Af 60 (>60 ml/min/1.73 sqM) Glucose 106 H (74-99) mg/dL POC Glucose (mg/dL) (75-99) mg/dL POC Glu Modeling Instructor ID Calcium 9.4 (8.4-10.2) mg/dL Total Bilirubin 1.2 (0.2-1.3) mg/dL AST 54 (17-59) U/L ALT 40 (21-72) U/L Alkaline Phosphatase 73 (38-126) U/L Total Creatine Kinase 230 H (55-170) U/L Total Protein 7.8 (6.3-8.2) g/dL Albumin 4.1 (3.5-5.0) g/dL 07/11/16 07/11/16 Range/Units 23:30 23:47 WBC (3.8-10.6) k/uL RBC (4.30-5.90) m/uL Hgb (13.0-17.5) gm/dL Hct (39.0-53.0) % MCV (80.0-100.0) fL MCH (25.0-35.0) pg MCHC (31.0-37.0) g/dL RDW (11.5-15.5) % Plt Count (150-450) k/uL Neutrophils % % Lymphocytes % % Monocytes % % Eosinophils % % Basophils % % Neutrophils # (1.3-7.7) k/uL Lymphocytes # (1.0-4.8) k/uL Monocytes # (0-1.0) k/uL Eosinophils # (0-0.7) k/uL Basophils # (0-0.2) k/uL PT 10.1 (9.0-12.0) sec INR 1.0 (<1.1) APTT 25.4 (22.0-30.0) sec Sodium (137-145) mmol/L Potassium (3.5-5.1) mmol/L Chloride (98-107) mmol/L Carbon Dioxide (22-30) mmol/L Anion Gap mmol/L BUN (9-20) mg/dL Creatinine (0.66-1.25) mg/dL Est GFR (MDRD) Af Amer (>60 ml/min/1.73 sqM) Est GFR (MDRD) Non-Af (>60 ml/min/1.73 sqM) Glucose (74-99) mg/dL POC Glucose (mg/dL) 122 H (75-99) mg/dL POC Glu Modeling Instructor ID Nadya Wallace Calcium (8.4-10.2) mg/dL Total Bilirubin (0.2-1.3) mg/dL AST (17-59) U/L ALT (21-72) U/L Alkaline Phosphatase (38-126) U/L Total Creatine Kinase (55-170) U/L Total Protein (6.3-8.2) g/dL Albumin (3.5-5.0) g/dL Critical Care Time Critical Care Time: Yes (45 minutes) Disposition Clinical Impression: Acute ischemic stroke, Internal carotid artery occlusion Disposition: OTHER INSTITUTION NOT DEFINED Condition: Critical Referrals: None,Stated [Primary Care Provider] - 1-2 days - Out of Hospital Transfer - Req. Specs Out of Hospital Transfer - Requested Specifics: Neurological ICU
[2016-07-11 23:55] LABS: Basophils # (A) 0.1 k/uL (0-0.2); Basophils % (A) 1 %; CH 30.4; CHCM 34.3; Eosinophils # (A) 0.6 k/uL (0-0.7); Eosinophils % (A) 5 %; HCT 43.5 % (39.0-53.0); HDW 2.63; HGB 14.4 gm/dL (13.0-17.5); Luc # (Auto) 0.33; Luc % (Auto) 3; Lymphocytes # (A) 2.7 k/uL (1.0-4.8); Lymphocytes % (A) 21 %; MCH 29.5 pg (25.0-35.0); MCHC 33.1 g/dL (31.0-37.0); MCV 88.9 fL (80.0-100.0); Mean Platelet Volume 6.7; Monocytes # (A) 0.8 k/uL (0-1.0); Monocytes % (A) 6 %; Neutrophils # (A) 8.4 k/uL (1.3-7.7); Neutrophils % (A) 65 %; RBC 4.89 m/uL (4.30-5.90); RDW 13.8 % (11.5-15.5); WBC 12.9 k/uL (3.8-10.6); WBC (Perox) 12.48
[2016-07-12] LABS: Glucose,Whole Blood 122 mg/dL (75-99)
[2016-07-12 00:09] LABS: Partial Thromboplastin Time 25.4 sec (22.0-30.0); Prothrombin Time 10.1 sec (9.0-12.0)
[2016-07-12] MEDS ORDERED: LABETALOL 5 MG/ML VIAL MDV IVP STA (00:10)
[2016-07-12 00:11] LABS: ALT 40 U/L (21-72); AST 54 U/L (17-59); Alkaline Phosphatase 73 U/L (38-126); Anion Gap 11 mmol/L; Blood Urea Nitrogen 21 mg/dL (9-20); Calcium 9.4 mg/dL (8.4-10.2); Carbon Dioxide 28 mmol/L (22-30); Chloride 102 mmol/L (98-107); Glucose 106 mg/dL (74-99); Non-African American GFR(MDRD) 60 (>60 ml/min/1.73 sqM); Sodium 141 mmol/L (137-145); Total Bilirubin 1.2 mg/dL (0.2-1.3); Total Protein 7.8 g/dL (6.3-8.2)
[2016-07-12] MEDS ORDERED: tPA (Alteplase) PER PHARMACY 1 EACH MISC MISCELLANE PRN (00:16)
[2016-07-12 00:20] VITALS: RESP 18
[2016-07-12] MEDS ORDERED: ALTEPLASE BOLUS 9 MG in EMPTY BAG 1 BAG IV STA (00:20)
[2016-07-12] MEDS ORDERED: ALTEPLASE 81 MG in EMPTY BAG 1 BAG IV STA (00:20)
--- NOTE | 2016-07-12 00:29 | CT ---
ADDENDUM - Added by Maria Del Carmen Farr M.D. on 07/12/2016 12:38 AM (-07:00) Given findings of accompanying CTA exam with occlusion of the right ICA and its branches including paucity of cortical vessels on the right, MRI may be obtained for further evaluation as it is more sensitive for acute ischemia. EXAM: CT Head Without Intravenous Contrast. CLINICAL HISTORY: Reason: Neuro Deficits TECHNIQUE: Axial computed tomography images of the head/brain without intravenous contrast. CTDI is 57.40 mGy and DLP is 1098.80 mGy-cm This CT exam was performed using one or more of the following dose reduction techniques: automated exposure control, adjustment of the mA and/or kV according to patient size, and/or use of iterative reconstruction technique. COMPARISON: None FINDINGS: Brain: No acute infarct or hemorrhage idenitified. No extra-axial fluid collection. No mass effect or midline shift. Mild scattered areas of hypoattenuation in the supratentorial white matter likely represent chronic small vessel ischemic changes. Small hypodensity near the left thalamus/posterior limb of the left internal capsule may represent a remote lacunar infarct. Ventricles and sulci: No hydrocephalus. Skull: Normal. No bony lesion or fracture. Subcutaneous tissues: Normal. Sinuses: Normal. No air-fluid levels or mucosal thickening. Orbits: Grossly unremarkable. Other: Atherosclerotic calcifications in the intracranial vasculature. IMPRESSION: 1. No acute intracranial abnormality. 2. Mild chronic small vessel ischemic changes. Small remote lacunar infarct near the left thalamus. Critical Value [employer] 07/12/16 00:54 Call Doctor Regarding Stroke, called Dr. Maddox on 07/12 00:54 (-04:00)
[2016-07-12 00:35] LABS: Creatine Kinase MB 3.2 ng/mL (0.0-2.4)
[2016-07-12 00:36] LABS: Troponin I 12.1 ng/mL (0.000-0.034)
[2016-07-12 00:40] VITALS: TEMP 99.4
--- NOTE | 2016-07-12 00:48 | XR ---
EXAM: XR Chest, 1 View. CLINICAL HISTORY: Reason: altered mental status TECHNIQUE: Frontal view of the chest. COMPARISON: Chest radiograph on 07/08/2016. FINDINGS: Hardware: None. Lungs/pleura: Lower lung volumes with bibasilar atelectasis and crowding of bronchovascular markings. No focal consolidation. No pleural effusion or pneumothorax. Similar elevation of the right hemidiaphragm. Heart/mediastinum: Stable mild enlargement of the cardiac silhouette at least in part accentuated by low lung volumes. Soft tissues: Unremarkable. Bones: No acute fracture. Upper abdomen: Normal. IMPRESSION: Low lung volumes with bibasilar atelectasis and crowding of vascular markings. Enlargement of the cardiac silhouette, at least in part accentuated by low lung volumes. No definite evidence of CHF.
[2016-07-12 00:51] VITALS: BP 165/99; PULSE 70
--- NOTE | 2016-07-12 01:25 | CT ---
EXAM: CT Angiography Head With Intravenous Contrast. CLINICAL HISTORY: Reason: Neuro Deficits TECHNIQUE: Axial computed tomographic angiography images of the head with intravenous contrast using CT angiography protocol. CTDI is 57.40 mGy and DLP is 1098.80 mGy-cm This CT exam was performed using one or more of the following dose reduction techniques: automated exposure control, adjustment of the mA and/or kV according to patient size, and/or use of iterative reconstruction technique. MIP reconstructed images were created and reviewed. COMPARISON: None FINDINGS: Distal internal carotid arteries: Occlusion of the right ICA. Atherosclerotic changes in the supraclinoid portions of the ICAs. [place]: Occlusion of the right MCA and its branches. Paucity of cortical arteries on the right. Occlusion of the right JEFFREY. Irregularities in the left MCA with mild focal dilatation of the left M2 segment. Diminutive right MANAGER AMBULATORY with the distal segment is not well- visualized. Distal vertebral arteries: Right vertebral artery not visualized. No significant stenosis or occlusion left vertebral artery. Basilar artery: No significant stenosis or occlusion. IMPRESSION: 1. Occlusion of the right internal carotid artery, right MCA and its branches, and right JEFFREY. Paucity of cortical vessels in the right cerebral hemisphere. 2. Right vertebral artery is diminutive and the distal aspect is not well-visualized. 3. Irregularities in the left MCA with mild focal dilatation of the left M2 segment. This may represent atherosclerotic changes and mild multifocal stenoses with mild aneurysmal short segment. 4. Diminutive right MANAGER AMBULATORY with decreased contrast opacification in the distal segments. EXAM: CT Angiography Neck With Intravenous Contrast. CLINICAL HISTORY: Reason: Neuro Deficits TECHNIQUE: Axial computed tomographic angiography images of the neck with intravenous contrast using CT angiography protocol. CTDI is 57.40 mGy and DLP is 1098.80 mGy-cm This CT exam was performed using one or more of the following dose reduction techniques: automated exposure control, adjustment of the mA and/or kV according to patient size, and/or use of iterative reconstruction technique. MIP reconstructed images were created and reviewed. COMPARISON: None FINDINGS: Common carotid arteries: Mild atherosclerotic calcifications in bilateral carotid bulbs without significant stenosis. Internal carotid arteries: Mild atherosclerotic calcifications in the left proximal ICA without significant stenosis. Occlusion of the right ICA from the proximal/mid portion without reconstitution distally. Vertebral arteries: Very diminutive right vertebral artery. Unremarkable left vertebral artery. Other: Atherosclerotic changes in the aortic arch. Noncalcified plaque versus thrombus at the origin of the left subclavian artery. IMPRESSION: 1. Occlusion of the right ICA beginning from the proximal/mid portion. 2. Diminutive right vertebral artery.
== END 2016-07-12 00:55 | disposition short-term general hospital (02) ==
LOC: EC 23:24
DX: I63.239 Cerebral infarction due to unspecified occlusion or stenosis of unspecified carotid artery (principal); I25.2 Old myocardial infarction; Z87.891 Personal history of nicotine dependence; Z95.5 Presence of coronary angioplasty implant and graft
CPT/HCPCS: 99291; 37195; 96374; 96361; 36415; 93005; 80053; 82550; 82553; 84484; 85025; 85610; 85730; 71010; 70496; 70450; 70498; J2997; Q9967